=== PATIENT | female | born 1990 | race Caucasian/White ===

== ENCOUNTER 2021-12-30 04:55 | Emergency (ER) | payer OTHER, MEDICAID, SELFPAY ==
[2021-12-30 05:04] VITALS: BP 124/62; PULSE 85; RESP 18; TEMP 36.4; O2SAT 100
[2021-12-30 05:07] VITALS: BMI 23.3
--- NOTE | 2021-12-30 05:08 | DI.RAD.S_ITS ---
PROCEDURE: XR TIBIA FUBULA RT 2V INDICATIONS: pain, injury TECHNIQUE: 2 views of the tibia and fibula were acquired. COMPARISON: None. FINDINGS: Bones: No fractures or dislocations. No suspicious bony lesions. Soft tissues: No suspicious soft tissue calcifications or masses. IMPRESSION: No acute osseous abnormalities. No significant discrepancy with the night court magistrate radiology preliminary report. Dictated by: Aliyah Rizo M.D. on 12/30/2021 at 8:42 Approved by: Aliyah Rizo M.D. on 12/30/2021 at 8:42
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
--- NOTE | 2021-12-30 07:55 | DI.RAD.S_ITS ---
PROCEDURE: XR ANKLE RT MIN 3V INDICATIONS: pain, swelling, injury TECHNIQUE: 3 views of the ankle were acquired. COMPARISON: None. FINDINGS: Bones: No fractures or dislocations. Ankle mortise is normally aligned. No suspicious bony lesions. Soft tissues: Mild ankle edema. Achilles tendon appears normal. IMPRESSION: Mild ankle edema. No visualized acute fracture or dislocation. However, if clinical concern and/or pain persist, short interval imaging followup in 7-10 days is recommended, as occult injury cannot be definitively excluded. Dictated by: Viviana Carranza M.D. on 12/30/2021 at 8:39 Approved by: Viviana Carranza M.D. on 12/30/2021 at 8:39
--- NOTE | 2021-12-30 09:27 | PC.NURSE ---
Air splint applied to ankle. Education provided on crutches.
[2021-12-30 09:28] VITALS: BP 118/62; PULSE 88; RESP 16; O2SAT 98
== END 2021-12-30 09:28 | disposition home or self-care (01) ==
PROVIDERS: Emergency Provider Emergency Medicine
DX: S93.401A Sprain of unspecified ligament of right ankle, initial encounter (principal); L03.115 Cellulitis of right lower limb; V89.2XXA Person injured in unspecified motor-vehicle accident, traffic, initial encounter
CPT/HCPCS: 73590; 73610; 93971; 99283

== ENCOUNTER 2022-05-30 13:19 | Emergency (ER) | payer OTHER, MEDICAID, SELFPAY ==
--- NOTE | 2022-05-30 13:27 | PC.NURSE ---
pt brought from parking lot into shower immediately. undressed and placed under cold(at pt request) water. Provider notified and came to speak with pt in shower.
[2022-05-30 14:26] VITALS: BP 123/73; PULSE 105; RESP 17; TEMP 36.4; O2SAT 100
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
== END 2022-05-30 15:27 | disposition left against medical advice (07) ==
PROVIDERS: Emergency Provider Emergency Medicine
CPT/HCPCS: 99281

== ENCOUNTER 2022-07-06 16:30 | Emergency (ER) | payer OTHER, MEDICAID, SELFPAY ==
[2022-07-06 16:36] VITALS: BP 132/69; PULSE 81; RESP 18; TEMP 36.3; O2SAT 96; BMI 22.6
--- NOTE | 2022-07-06 18:50 | PC.NURSE ---
called from waiting room without answer
== END 2022-07-06 18:50 | disposition left against medical advice (07) ==
PROVIDERS: Emergency Provider Emergency Medicine; PCP Family Medicine
DX: R22.9 Localized swelling, mass and lump, unspecified (principal)
CPT/HCPCS: 99281

== ENCOUNTER 2023-06-02 00:01 | Emergency (ER) | payer OTHER, MEDICAID, SELFPAY ==
[2023-06-02 00:09] VITALS: BP 147/90; PULSE 79; RESP 20; TEMP 36.1; O2SAT 100; BMI 24.7
--- NOTE | 2023-06-02 00:20 | ED_ITS ---
HPI - Dental/Oral General Chief complaint: Dental/Oral Stated complaint: abscess in mouth Time Seen by Provider: 06/02/23 00:02 Source: patient Mode of arrival: Ambulatory History of Present Illness HPI Narrative: 32-year-old female presents for right-sided facial abscess. Patient was seen at [facility] yesterday for same and started on Augmentin. She took 3 total doses of Augmentin but her face is more swollen and painful and she does not think the Augmentin is helping. She states that she was taking leftover doxycycline that she had at home Related Data Previous Rx's Medication Instructions Recorded doxycycline hyclate 100 mg tablet 100 mg PO BID #20 tabs 12/30/21 ketorolac 10 mg tablet 10 mg PO Q6H PRN pain #14 tabs 12/30/21 chlorhexidine gluconate 0.12 % 15 ml buccal BID #600 mL 06/02/23 mouthwash (Peridex) clindamycin HCl 150 mg capsule 450 mg (3 x 150 mg) PO TID 10 days 06/02/23 #90 caps Allergies Allergy/AdvReac Type Severity Reaction Status Date / Time codeine AdvReac Vomiting Verified 07/06/22 16:40 Review of Systems Review of Systems Narrative: see HPI Patient History Social History Smoking Status: Current every day smoker Smoking Status: Current every day smoker tobacco type: cigarettes alcohol intake frequency: a few times a week Substance Use Type: does not use Exam Initial Vital Signs Initial Vital Signs: Vital Signs Temperature 97.0 F L 06/02/23 00:09 Pulse Rate 79 06/02/23 00:09 Respiratory Rate 20 06/02/23 00:09 Blood Pressure 147/90 H 06/02/23 00:09 Pulse Oximetry 100 06/02/23 00:09 Oxygen Delivery Method Room Air 06/02/23 00:09 Const: Awake, alert, no acute distress Mouth: no trismus, no pooling of secretions. Extensive dental caries, moderate swelling R mandible Skin: Warm, Dry, intact, no rashes Neuro: AO x3, CN II-XII grossly intact, moves all extremities Procedures Abscess I/D I&D #1: Site: oral Side (if applicable): right Local Anesthetic: lidocaine 1% and with epi Amount of anesthesia used (mL): 5 Technique: needle aspiration Amount of fluid expressed (mL): 0 Irrigation: No Packing used?: none Complications: bleeding Nerve Block Nerve Block 1: Local Anesthetic: lidocaine 1% and with epi Amount of anesthesia used (mL): 5 Side: right Nerve Blocks: other (dental) Intraoral Nerve Block: inferior alveolar Procedure Successful: Yes Patient Tolerated Procedure: Well Complications: bleeding Additional Comments: minor amount of bleeding Course Vital Signs Vital signs: Vital Signs - 8 hr 04/02/24 00:09 Temperature 97.0 F L Pulse Rate 79 Respiratory Rate 20 Blood Pressure 147/90 H Pulse Oximetry 100 Oxygen Delivery Method Room Air MDM - Dental/Oral MDM Narrative Medical decision making narrative: Worsening dental abscess. Patient has extensive dental caries and severe dental disease. Dental block performed with good analgesia, however despite needle aspiration no material was expressed from the area of swelling. We will change antibiotics from Augmentin to clindamycin. Patient counseled on the extreme importance of following up with dental services Discharge Plan Departure Patient Disposition: Home Clinical Impression: Dental abscess Instructions: Tooth Abscess Activity Restrictions/Additional Instructions: Stopped taking the Augmentin and start taking the clindamycin. Finish all of the antibiotics. It was extremely important that you follow up with a dentist otherwise this condition we will never get better. Prescriptions: New chlorhexidine gluconate [Peridex] 0.12 % mouthwash 15 ml buccal BID Qty: 600 0RF clindamycin HCl 150 mg capsule 450 mg PO TID 10 Days Qty: 90 0RF No Action doxycycline hyclate 100 mg tablet 100 mg PO BID Qty: 20 0RF ketorolac 10 mg tablet 10 mg PO Q6H PRN (Reason: pain) Qty: 14 0RF Referrals: Luis Eduardo Ureña MD [Primary Care Provider] - Stand Alone Forms: Patient Portal/API
--- NOTE | 2023-06-02 00:23 | PC.NURSE ---
Pt has multiple missing teeth. Pt reports she has had these issues for more than 3 years now. Pt started to have this right mouth pain/swelling for the last few days. Seen recently and treated with antibiotics, but pt feels she is worse.
[2023-06-02 01:05] VITALS: BP 126/65; PULSE 80; RESP 22; O2SAT 96
[2023-06-02] MEDS: CHLORHEXIDINE GLUCONATE 15 ML CUP PO (01:05)
[2023-06-02] MEDS: CLINDAMYCIN 150 MG CAPSULE 450 MG PO (01:05)
== END 2023-06-02 01:15 | disposition home or self-care (01) ==
PROVIDERS: Emergency Provider Emergency Medicine; PCP Family Medicine
DX: K04.7 Periapical abscess without sinus (principal)

== ENCOUNTER 2023-06-02 14:40 | Observation (INO) | payer OTHER, MEDICAID, SELFPAY ==
[2023-06-02] VITALS (7 sets, daily range): BP systolic 113–125; BP diastolic 59–73; PULSE 75–85; RESP 16–20; TEMP 36.3–36.8; O2SAT 10–100; BMI 24.7
[2023-06-02 16:00] LABS: Add Manual Diff / Slide Review NO; Basophils Absolute Auto 0 /uL (0-100); Basophils Percent Auto 0.4 % (0-2); Eosinophils Absolute Auto 100 /uL (0-450); Eosinophils Percent Auto 0.7 % (2-4); Hematocrit 35.9 % (36-46); Hemoglobin 12.5 g/dL (12.0-16.0); Lymphocytes Absolute Auto 1600 /uL (1100-4500); Lymphocytes Percent Auto 20.6 % (25-40); Mean Corpuscular Hemoglobin 30.5 PG (26-34); Mean Corpuscular Volume 87.3 fL (80-100); Monocytes Absolute Auto 800 /uL (0-900); Monocytes Percent Auto 9.4 % (3-14); Neutrophils Absolute Auto 5500 /uL (1500-7000); Neutrophils Percent Auto 68.9 % (50-75); Platelet Count 283 X10^3/uL (150-400); Red Blood Cell Count 4.11 X10^6/uL (4.0-5.2); Red Cell Distribution Width 12.5 % (11.6-14.8)
[2023-06-02] MEDS: MORPHINE 4 MG/ML INJ IV (16:00)
[2023-06-02] MEDS: KETOROLAC 30 MG/ML VIAL 15 MG IV (16:00)
[2023-06-02 16:11] LABS: INR 1.1 (0.9-1.3); Prothrombin Time 12.6 SECONDS (9.4-12.5)
[2023-06-02] MEDS: SODIUM CHLORIDE 0.9% 1,000 ML 1000 ML IV (16:12)
[2023-06-02] MEDS: diphenhydrAMINE 50 MG/ML VIAL 25 MG IV (16:12)
[2023-06-02 16:13] LABS: PTT Partial Thromboplastin Tim 48 SECONDS (25.1-36.5)
--- NOTE | 2023-06-02 16:13 | PC.NURSE ---
Pt c/o itching and redness on right arm above where IV morphine was administered. Denies shortness of breath, airway swelling, hives, nausea/vomiting. Dr. Mcgraw made aware, ordered benedryl 25 mg IV which was administered. Vital signs as documented. Morphine added to allergy list.
[2023-06-02 16:17] LABS: Lactate (Lactic Acid) 1.1 mmol/L (0.7-2.1)
[2023-06-02 16:18] LABS: Alanine Aminotransferase 26 IU/L (<35); Albumin 3.7 g/dL (3.5-5.0); Albumin Globulin Ratio 1.2 (1.0-2.8); Alkaline Phosphatase 88 U/L (38-126); Aspartate Aminotransferase 28 IU/L (14-36); Bilirubin Total 0.5 mg/dL (0.2-1.3); Blood Urea Nitrogen 15 mg/dL (7-17); Calcium 8.5 mg/dL (8.4-10.2); Carbon Dioxide 25 mmol/L (22-32); Chloride 106 mmol/L (98-107); Estimated Glomerular Filt Rate > 60 mL/min (>60); Globulin 3.2 g/dL (1.7-4.1); Glucose 121 mg/dL (70-100); HEMOLYSIS < 15 (0-50); Lipase 44 U/L (23-300); Potassium 3.8 mmol/L (3.4-5.1); Sodium 137 mmol/L (137-145); Total Protein 6.9 g/dL (6.3-8.2)
[2023-06-02 16:24] LABS: Pregnancy Test Serum,Qual Negative (Negative)
[2023-06-02 16:34] LABS: Procalcitonin 0.04 ng/mL (<0.5)
--- NOTE | 2023-06-02 16:56 | DI.CT.S_ITS ---
PROCEDURE: CT SOFT TISSUE NECK W CON INDICATIONS: right neck/face swelling TECHNIQUE: After the administration of intravenous contrast, 3.0 mm axial sections acquired from the sella to the aortic arch. Additional oblique axial 3.0 mm sections acquired through the pharynx. 3 mm thick coronal and sagittal reformats were generated. For radiation dose reduction, the following was used: automated exposure control. COMPARISON: None. FINDINGS: Image quality: Excellent. Lymph nodes: Multiple enlarged right submandibular, level 2 and level 3 lymph nodes are seen that are most likely reactive. Smaller left-sided cervical lymph nodes are mildly increased in number. Vessels: Visualized vasculature appears patent. Neck spaces: Prominent soft tissue edema is seen in the right buccal region overlying subcutaneous tissues. No well-defined fluid collection or abscess is seen. No submandibular or parotid duct enlargement or sialolith is seen. The oropharynx, nasopharynx, and pharynx demonstrate no mucosal lesions. The vocal cords, false vocal cords, pyriform sinuses, epiglottis, vallecula, and tongue base all appear normal. Glands: The parotid and submandibular glands appear normal. Thyroid appears normal. Miscellaneous: Visualized brain and orbits appear normal. Lung apices appear clear. Superficial soft tissues appear normal. Bones: Diffuse dental and periodontal disease is noted. No suspicious bony lesions. Mucous retention cysts are seen in the bilateral maxillary sinuses. Minimal degenerative changes in the cervical spine. IMPRESSION: 1. Soft tissue edema is seen throughout the right face centered in the buccal region, which is nonspecific but may represent cellulitis. No focal abscess. There is diffuse dental and periodontal disease that could indicate a source for infection. 2. Mildly enlarged right cervical lymph nodes are nonspecific but likely reactive. Approved by: Jake Montoya M.D. on 06/02/2023 at 17:10
--- NOTE | 2023-06-02 16:59 | PC.NURSE ---
Pt came to the ED today for ongoing and worsening right lower jaw pain & swelling. Pt seen at [facility] in [place] yesterday and received rx for augmentin. Pt's pain and swelling worsened so pt came to ED early this morning. Needle aspiration performed at that time unsuccessful. ED doc changed abx to clindamyicin. Pt states swelling and pain worse than this morning and has returned to ED for further evaluation. Pt denies having any fever. Right jaw and lip extremely swollen. Pt a&ox4.
--- NOTE | 2023-06-02 18:23 | ED_ITS ---
HPI - Dental/Oral General Chief complaint: Dental/Oral Stated complaint: tooth pain, face swelling Time Seen by Provider: 06/02/23 17:49 Source: patient Mode of arrival: Ambulatory History of Present Illness HPI Narrative: 32-year-old female with history of dental caries presents for facial swelling and jaw pain. Patient was seen earlier this morning by myself for facial swelling. Attempted to drain fluid, however this was unsuccessful. Patient had been on Augmentin for several days and she did not feel like she was improving, so she was switched to clindamycin and discharged home. Patient returns today with markedly worsened swelling and pain. Denies difficulty swallowing, voice changes. She is able to open her mouth and tolerate secretions. Related Data Previous Rx's Medication Instructions Recorded doxycycline hyclate 100 mg tablet 100 mg PO BID #20 tabs 12/30/21 ketorolac 10 mg tablet 10 mg PO Q6H PRN pain #14 tabs 12/30/21 chlorhexidine gluconate 0.12 % 15 ml buccal BID #600 mL 06/02/23 mouthwash (Peridex) clindamycin HCl 150 mg capsule 450 mg (3 x 150 mg) PO TID 10 days 06/02/23 #90 caps Allergies Allergy/AdvReac Type Severity Reaction Status Date / Time morphine Allergy ITCHING Verified 06/02/23 16:16 codeine AdvReac Vomiting Verified 06/02/23 14:49 Review of Systems Review of Systems Narrative: Negative except as noted above Patient History Social History Smoking Status: Current every day smoker Smoking Status: Current every day smoker tobacco type: cigarettes alcohol intake frequency: a few times a week Substance Use Type: does not use Exam Initial Vital Signs Initial Vital Signs: Vital Signs Temperature 98.3 F 06/02/23 14:43 Pulse Rate 85 06/02/23 14:43 Respiratory Rate 20 06/02/23 14:43 Blood Pressure 125/59 L 06/02/23 14:43 Pulse Oximetry 98 06/02/23 14:43 Oxygen Delivery Method Room Air 06/02/23 14:43 Const: Awake, alert, no acute distress, nontoxic appearing HEENT: markedly worsened R sided facial swelling. Extensive dental caries and tooth decay. No trismus, no pooling of secretions Cardiac: regular rate, regular rhythm RESP: unlabored, clear bilaterally, no wheezing Skin: Warm, Dry, intact, no rashes Neuro: AO x3, CN II-XII grossly intact, moves all extremities Course Orders Ordered: ED Orders 06/02/23 15:15 Complete Blood Count AUTO DIFF Stat Comprehensive Metabolic Panel Stat Lactate (Lactic Acid) Stat Lipase Stat PTT Partial Thromboplastin Rolando Stat Test Serum,Qual Stat Procalcitonin Stat Prothrombin Time INR Stat 06/02/23 16:05 Blood Culture Stat 06/02/23 16:56 CT soft tissue neck w con Stat 06/02/23 19:24 Urine Drug Screen, Rapid Stat Acetaminophen (Acetaminophen 325 Mg Tablet) 650 mg PO Q6H PRN PRN Reason: Fever/Mild Pain (1-3) Enoxaparin Sodium (Enoxaparin 40 Mg/0.4 Ml Syringe) 40 mg SUBCUT DAILY ANDREW Ampicillin Sodium/Sulbactam (Sodium 1.5 gm/ Sodium Chloride) 100 mls @ 200 mls/hr IV Q6H ANDREW Naloxone HCl (Naloxone 0.4 Mg/Ml Vial) 0.2 mg IV Q2MIN PRN PRN Reason: Opiate Reversal Ondansetron HCl (Ondansetron 4 Mg/2 Ml Inj) 4 mg IV NOW PRN PRN Reason: Nausea And Vomiting Ondansetron HCl (Ondansetron 4 Mg Odt) 4 mg SL NOW PRN PRN Reason: Nausea And Vomiting Ondansetron HCl (Ondansetron 4 Mg/2 Ml Inj) 4 mg IV Q4HR PRN PRN Reason: nausea Oxycodone HCl (Oxycodone Ir 5 Mg Tablet) 5 mg PO Q3H PRN PRN Reason: Pain, Moderate (4-6) Oxycodone HCl (Oxycodone Ir 10 Mg Tablet) 10 mg PO Q3H PRN PRN Reason: Pain, Severe (7-10) Discontinued Medications Dexamethasone (Dexamethasone 10 Mg/Ml Vial) 10 mg IV NOW ONE Stop: 06/02/23 18:25 Last Admin: 06/02/23 19:17 Dose: 10 mg Documented By: PAULO Diphenhydramine HCl (Diphenhydramine 50 Mg/Ml Vial) 25 mg IV NOW ONE Stop: 06/02/23 16:08 Last Admin: 06/02/23 16:12 Dose: 25 mg Documented By: KELECHI Sodium Chloride (Normal Saline 0.9%) 1,000 mls @ 1,000 mls/hr IV BOLUS ONE Stop: 06/02/23 16:32 Last Infusion: 06/02/23 17:18 Dose: Infused Documented By: Admin: 06/02/23 16:12 Dose: 1,000 mls/hr Documented By: KELECHI Ampicillin Sodium/Sulbactam (Sodium 3 gm/ Sodium Chloride) 100 mls @ 200 mls/hr IV NOW ONE Stop: 06/02/23 18:27 Last Infusion: 06/02/23 19:51 Dose: Infused Documented By: Admin: 06/02/23 19:17 Dose: 200 mls/hr Documented By: PAULO Ketorolac Tromethamine (Ketorolac 30 Mg/Ml Vial) 15 mg IV NOW ONE Stop: 06/02/23 15:37 Last Admin: 06/02/23 16:00 Dose: 15 mg Documented By: ROSELINE Morphine Sulfate (Morphine 4 Mg/Ml Inj) 4 mg IV NOW ONE Stop: 06/02/23 15:37 Last Admin: 06/02/23 16:00 Dose: 4 mg Documented By: ROSELINE Vital Signs Vital signs: Vital Signs - 8 hr 06/02/23 14:43 06/02/23 16:00 06/02/23 16:30 Temperature 98.3 F Pulse Rate 85 78 Respiratory Rate 20 16 Blood Pressure 125/59 L 120/73 122/64 Pulse Oximetry 98 99 Oxygen Delivery Method Room Air Room Air 06/02/23 17:00 06/02/23 19:12 06/02/23 19:12 Temperature Pulse Rate 80 75 Respiratory Rate 18 Blood Pressure 125/62 121/66 121/66 Pulse Oximetry 96 10 L Oxygen Delivery Method Room Air MDM - Dental/Oral Differential Diagnosis Differential diagnosis: Likely gingival abscess, dental caries, toothache and dental abscess Lab Data 06/02/23 15:15 06/02/23 15:15 Labs: Lab Results 06/02/23 Range/Units 15:15 WBC 8.0 (4.5-11.0) X10^3/uL RBC 4.11 (4.0-5.2) X10^6/uL Hgb 12.5 (12.0-16.0) g/dL Hct 35.9 L (36-46) % MCV 87.3 (80-100) fL MCH 30.5 (26-34) PG MCHC 35.0 (30-36) % RDW 12.5 (11.6-14.8) % Plt Count 283 (150-400) X10^3/uL Neut % (Auto) 68.9 (50-75) % Lymph % (Auto) 20.6 L (25-40) % [place] % (Auto) 9.4 (3-14) % Eos % (Auto) 0.7 L (2-4) % Baso % (Auto) 0.4 (0-2) % Neut # (Auto) 5500 (5314-9126) /uL Lymph # (Auto) 1600 (6084-0904) /uL [place] # (Auto) 800 (0-900) /uL Eos # (Auto) 100 (0-450) /uL Baso # (Auto) 0 (0-100) /uL PT 12.6 H (9.4-12.5) SECONDS INR 1.1 (0.9-1.3) APTT 48 H (25.1-36.5) SECONDS Sodium 137 (137-145) mmol/L Potassium 3.8 (3.4-5.1) mmol/L Chloride 106 (98-107) mmol/L Carbon Dioxide 25 (22-32) mmol/L BUN 15 (7-17) mg/dL Creatinine 0.50 L (0.52-1.04) mg/dL Estimated GFR > 60 (>60) mL/min BUN/Creatinine Ratio 30.0 H (6-22) Glucose 121 H (70-100) mg/dL Lactate 1.1 (0.7-2.1) mmol/L Calcium 8.5 (8.4-10.2) mg/dL Total Bilirubin 0.5 (0.2-1.3) mg/dL AST 28 (14-36) IU/L ALT 26 (<35) IU/L Alkaline Phosphatase 88 (38-126) U/L Total Protein 6.9 (6.3-8.2) g/dL Albumin 3.7 (3.5-5.0) g/dL Globulin 3.2 (1.7-4.1) g/dL Albumin/Globulin Ratio 1.2 (1.0-2.8) Lipase 44 (23-300) U/L Procalcitonin 0.04 (<0.5) ng/mL Serum , Qual Negative (Negative) Imaging Data CT scan - head: Radiologist's Impression: PROCEDURE: CT SOFT TISSUE NECK W CON INDICATIONS: right neck/face swelling TECHNIQUE: After the administration of intravenous contrast, 3.0 mm axial sections acquired from the sella to the aortic arch. Additional oblique axial 3.0 mm sections acquired through the pharynx. 3 mm thick coronal and sagittal reformats were generated. For radiation dose reduction, the following was used: automated exposure control. COMPARISON: None. FINDINGS: Image quality: Excellent. Lymph nodes: Multiple enlarged right submandibular, level 2 and level 3 lymph nodes are seen that are most likely reactive. Smaller left-sided cervical lymph nodes are mildly increased in number. Vessels: Visualized vasculature appears patent. Neck spaces: Prominent soft tissue edema is seen in the right buccal region overlying subcutaneous tissues. No well-defined fluid collection or abscess is seen. No submandibular or parotid duct enlargement or sialolith is seen. The oropharynx, nasopharynx, and pharynx demonstrate no mucosal lesions. The vocal cords, false vocal cords, pyriform sinuses, epiglottis, vallecula, and tongue base all appear normal. Glands: The parotid and submandibular glands appear normal. Thyroid appears normal. Miscellaneous: Visualized brain and orbits appear normal. Lung apices appear clear. Superficial soft tissues appear normal. Bones: Diffuse dental and periodontal disease is noted. No suspicious bony lesions. Mucous retention cysts are seen in the bilateral maxillary sinuses. Minimal degenerative changes in the cervical spine. IMPRESSION: 1. Soft tissue edema is seen throughout the right face centered in the buccal region, which is nonspecific but may represent cellulitis. No focal abscess. There is diffuse dental and periodontal disease that could indicate a source for infection. 2. Mildly enlarged right cervical lymph nodes are nonspecific but likely reactive. Approved by: Jake Montoya M.D. on 06/02/2023 at 17:10 MDM Narrative Medical decision making narrative: Markedly worsened facial swelling compared to when I saw patient earlier this morning. She was still able to open her mouth, tolerating secretions, however due to the rapid expansion of the swelling patient will likely need IV antibiotics. Laboratory work is relatively unremarkable, CT shows extensive soft tissue edema in the buccal region but no abscess. Patient given Decadron and Unasyn for coverage. We will admit for IV antibiotics. Discharge Plan Departure Patient Disposition: Admitted as Observation Clinical Impression: Facial cellulitis, Dental caries Admit Date/Time: 06/02/23 19:28 Admit Provider: Yobani Esquivel
--- NOTE | 2023-06-02 19:15 | PC.NURSE ---
pt resting with eyes closed resp even and unlabored, 20g HL to right hand intact without any redness or swelling noted, flushes well. pt allowed to continue to rest no apparent distress noted
[2023-06-02] MEDS: DEXAMETHASONE 10 MG/ML VIAL IV (19:17)
[2023-06-02] MEDS: AMPICILLIN/SULBACTAM 3 GM 3 GM in SODIUM CHLORIDE 0.9% 100 ML IV (19:17)
--- NOTE | 2023-06-02 19:36 | PM.HP.1 ---
History of Present Illness History of Present Illness Chief complaint: tooth pain, face swelling Narrative: 32 y/o with PMH of poor dentition, presented to ED earlier today with facial cellulitis originating from right bottom incisor infection, prescribed clindamycin, instead of Augmentin that she was taking for a few days. She presented again this evening with progressive facial swelling. PFSH Medical History Poor dentition Smoker Social History household members: friend(s) Smoking Status: Current every day smoker Meds Home Medications and Allergies Home Medications Medication Instructions Recorded Confirmed Type ketorolac 10 mg tablet 10 mg PO Q6H PRN pain #14 tabs 12/30/21 06/02/23 Rx chlorhexidine gluconate 0.12 % 15 ml buccal BID #600 mL 06/02/23 06/02/23 Rx mouthwash (Peridex) clindamycin HCl 150 mg capsule 450 mg (3 x 150 mg) PO TID 10 days 06/02/23 06/02/23 Rx #90 caps Allergies Allergy/AdvReac Type Severity Reaction Status Date / Time morphine Allergy ITCHING Verified 06/02/23 16:16 codeine AdvReac Vomiting Verified 06/02/23 14:49 Review of Systems Review of Systems Narrative: she had fever, chills ENT Comments: toothache Cardiovascular Comments: w/;o palpitations or chest pain Respiratory Comments: w/o shortness of breath Exam Vital Signs (past 8 hours): - 06/02/23 14:43 06/02/23 16:00 06/02/23 16:30 Temperature 98.3 F Pulse Rate 85 78 Respiratory Rate 20 16 Blood Pressure 125/59 L 120/73 122/64 Pulse Oximetry 98 99 Oxygen Delivery Method Room Air Room Air 06/02/23 17:00 06/02/23 19:12 06/02/23 19:12 Temperature Pulse Rate 80 75 Respiratory Rate 18 Blood Pressure 125/62 121/66 121/66 Pulse Oximetry 96 10 L Oxygen Delivery Method Room Air Oxygen Delivery Method Room Air Narrative Exam Narrative: in no distress, laying in bed HENMT Other: swollen right face poor dentition Resp Other: normal respiratory effort Cardio Other: RRR Skin Other: w/o rashes Neuro Other: w/o deficits Objective Labs 06/02/23 15:15 06/02/23 15:15 Labs: Laboratory Results - last 24 hr 06/02/23 15:15 WBC 8.0 RBC 4.11 Hgb 12.5 Hct 35.9 L MCV 87.3 MCH 30.5 MCHC 35.0 RDW 12.5 Plt Count 283 Neut % (Auto) 68.9 Lymph % (Auto) 20.6 L [place] % (Auto) 9.4 Eos % (Auto) 0.7 L Baso % (Auto) 0.4 Neut # (Auto) 5500 Lymph # (Auto) 1600 [place] # (Auto) 800 Eos # (Auto) 100 Baso # (Auto) 0 PT 12.6 H INR 1.1 APTT 48 H Sodium 137 Potassium 3.8 Chloride 106 Carbon Dioxide 25 BUN 15 Creatinine 0.50 L Estimated GFR > 60 BUN/Creatinine Ratio 30.0 H Glucose 121 H Lactate 1.1 Calcium 8.5 Total Bilirubin 0.5 AST 28 ALT 26 Alkaline Phosphatase 88 Total Protein 6.9 Albumin 3.7 Globulin 3.2 Albumin/Globulin Ratio 1.2 Lipase 44 Procalcitonin 0.04 Serum , Qual Negative Assessment & Plan Assessment and plan (1) Facial cellulitis: Status: Acute (2) Poor dentition: Status: Acute (3) Smoker: Status: Acute Assessment & Plan narrative: Facial Cellulitis - Failed 2 different PO antibiotics since 2-3 days ago - Worsened swelling since this morning - not septic but will require iv antibiotic - w/o odynophagia or change of voice, given steroid in ED - needs to follow with dentist Smoker - nicotine patch prn DVT prophylaxis -Lovenox
[2023-06-02] MEDS: OXYCODONE IR 5 MG TABLET PO (20:46)
[2023-06-02 23:07] LABS: UR Morphine/Opiate cutoff 300 Positive (Negative); Ur Creatinine Normal (Normal); Ur Specific Gravity Normal (Normal); Urine Amphetamines Positive (Negative); Urine Barbiturates Negative (Negative); Urine Benzodiazepines Negative (Negative); Urine Cocaine Negative (Negative); Urine MDMA Positive (Negative); Urine Methadone Negative (Negative); Urine Methamphetamines Positive (Negative); Urine Phencyclidine Negative (Negative); Urine Tetrahydrocannabinol Negative (Negative); Urine Tricyclic Antidepressant Negative (Negative); Urine pH Normal (Normal)
[2023-06-02 23:08] LABS: Urine Oxycodone Negative (Negative)
[2023-06-03] MEDS: AMPICILLIN/SULBACTAM 1.5 GM 1.5 GM in SODIUM CHLORIDE 0.9% 100 ML IV ×2 (00:08→05:42)
[2023-06-03 05:00] VITALS: BP 113/60; PULSE 70; RESP 16; TEMP 36.8; O2SAT 98
[2023-06-03 05:43] LABS: Add Manual Diff / Slide Review NO; Basophils Absolute Auto 0 /uL (0-100); Basophils Percent Auto 0.1 % (0-2); Eosinophils Absolute Auto 0 /uL (0-450); Hematocrit 36.8 % (36-46); Lymphocytes Absolute Auto 1100 /uL (1100-4500); Mean Corpuscular HGB Conc 35.3 % (30-36); Mean Corpuscular Hemoglobin 30.8 PG (26-34); Monocytes Absolute Auto 400 /uL (0-900); Monocytes Percent Auto 4.2 % (3-14); Neutrophils Absolute Auto 7000 /uL (1500-7000); Neutrophils Percent Auto 82.7 % (50-75); Platelet Count 311 X10^3/uL (150-400); Red Blood Cell Count 4.23 X10^6/uL (4.0-5.2); Red Cell Distribution Width 12.3 % (11.6-14.8); White Blood Cell Count 8.4 X10^3/uL (4.5-11.0)
[2023-06-03 06:02] LABS: BUN Creatinine Ratio 27.1 (6-22); Blood Urea Nitrogen 13 mg/dL (7-17); Calcium 8.5 mg/dL (8.4-10.2); Carbon Dioxide 24 mmol/L (22-32); Chloride 109 mmol/L (98-107); Estimated Glomerular Filt Rate > 60 mL/min (>60); Glucose 119 mg/dL (70-100); HEMOLYSIS < 15 (0-50); Sodium 136 mmol/L (137-145)
[2023-06-03 08:09] VITALS: BP 96/52; PULSE 72; RESP 16; TEMP 37.3; O2SAT 98
--- NOTE | 2023-06-03 09:41 | PC.NURSE ---
Addendum entered by Khang Urbina R.N. 06/03/23 10:50: Day shift - @1050 Pt has not returned, per Dr Fang Pt is gone AMA. I gathered her Pt belongings and placed in coordinators office. Original Note: Day shift-@0936 I walked by the Pt room to check on her, Pt is not present in room. Pt was last seen in room on bed talking on telephone @0904.
--- NOTE | 2023-06-03 11:13 | P.DS_ITS ---
History of Present Illness History of Present Illness Date Patient Seen: 06/03/23 Chief complaint: tooth pain, face swelling Narrative: Per overnight provider, 32 y/o with PMH of poor dentition, presented to ED earlier today with facial cellulitis originating from right bottom incisor infection, prescribed clindamycin, instead of Augmentin that she was taking for a few days. She presented again this evening with progressive facial swelling. Discharge Providers Provider Date of admission: 06/02/23 19:28 Discharge Date: 06/03/23 Primary care physician: Luis Eduardo Ureña MD Discharge provider: Kan Fang DO Summary Hospital Course Discharge Diagnosis: (1) Facial cellulitis: (2) Poor dentition: (3) Smoker: Hospital Course: 32 F admitted for facial cellulitis, CT did not show abscess but source was likely poor dentition. Patient eloped shortly after admission prior to being seen by me. Patient left belongings in her room, could not be located for over an hour. Time Spent with Patient Time spent: Less than 30 minutes Exam Vital Signs (past 8 hours): - 06/03/23 05:00 06/03/23 08:09 Temperature 98.3 F 99.2 F Pulse Rate 70 72 Respiratory Rate 16 16 Blood Pressure 113/60 96/52 L Pulse Oximetry 98 98 Oxygen Flow Rate 0 0 Oxygen Delivery Method Room Air Oxygen Flow Rate 0 Narrative Exam Narrative: unable to see, patient eloped prior to being seen. Objective Labs 06/03/23 05:10 06/03/23 05:10 Labs: Laboratory Results - last 24 hr 06/02/23 06/02/23 06/03/23 15:15 22:48 05:10 WBC 8.0 8.4 RBC 4.11 4.23 Hgb 12.5 13.0 Hct 35.9 L 36.8 MCV 87.3 87.0 MCH 30.5 30.8 MCHC 35.0 35.3 RDW 12.5 12.3 Plt Count 283 311 Neut % (Auto) 68.9 82.7 H Lymph % (Auto) 20.6 L 13.0 L [place] % (Auto) 9.4 4.2 Eos % (Auto) 0.7 L 0.0 L Baso % (Auto) 0.4 0.1 Neut # (Auto) 5500 7000 Lymph # (Auto) 1600 1100 [place] # (Auto) 800 400 Eos # (Auto) 100 0 Baso # (Auto) 0 0 PT 12.6 H INR 1.1 APTT 48 H Sodium 137 136 L Potassium 3.8 4.0 Chloride 106 109 H Carbon Dioxide 25 24 BUN 15 13 Creatinine 0.50 L 0.48 L Estimated GFR > 60 > 60 BUN/Creatinine Ratio 30.0 H 27.1 H Glucose 121 H 119 H Lactate 1.1 Calcium 8.5 8.5 Total Bilirubin 0.5 AST 28 ALT 26 Alkaline Phosphatase 88 Total Protein 6.9 Albumin 3.7 Globulin 3.2 Albumin/Globulin Ratio 1.2 Lipase 44 Procalcitonin 0.04 Serum , Qual Negative U Opiates 300ng/mL cut Positive H Ur Oxycodone Screen Negative Urine Methadone Screen Negative Ur Barbiturates Screen Negative U Tricyclic Antidepress Negative Ur Phencyclidine Scrn Negative Ur Amphetamines Screen Positive H U Methamphetamines Scrn Positive H Ur MDMA Scrn (Ecstasy) Positive H U Benzodiazepines Scrn Negative Urine Cocaine Screen Negative U Marijuana (THC) Screen Negative Urine pH Normal Urine Specific [place] Normal Ur Creatinine Normal PFSH Medical History Poor dentition Smoker Social History household members: friend(s) Smoking Status: Current every day smoker Discharge Plan Discharge Plan Patient Disposition: Left Against Medical Advice Provider Discharge Comment: Patient eloped Discharge orders & Medications Prescriptions: Continued chlorhexidine gluconate [Peridex] 0.12 % mouthwash 15 ml buccal BID Qty: 600 0RF clindamycin HCl 150 mg capsule 450 mg PO TID 10 Days Qty: 90 0RF ketorolac 10 mg tablet 10 mg PO Q6H PRN (Reason: pain) Qty: 14 0RF Follow up/Referrals: Luis Eduardo Ureña MD [Primary Care Provider] - Discharge Data Primary Care Provider: Luis Eduardo Ureña Attending Provider: Yobani Esquivel Admit Date/Time: 06/02/23 19:28
--- NOTE | 2023-06-03 12:28 | PC.NURSE ---
Notified by [employer] at 0945 that patient was not in room. Personal belongings visible in room including a backpack, no cell phone noted. Coordinator attempted to call patient with cell number listed in EMR. No answer. Security was notified. RN and Coordinator walked around the unit and the facility in effort to locate the patient. Patient was not located in the building. Dr. Fang aware. Unable to locate or contact patient. Per Dr. Fang. Discharge AMA. Belongings secured.
== END 2023-06-03 10:55 | disposition left against medical advice (07) ==
LOC: ED 17:49 → AC 19:29
PROVIDERS: Emergency Medicine; Admitting Provider Internal Medicine; Emergency Provider Emergency Medicine; PCP Family Medicine; Referring Provider Emergency Medicine; Visit Provider Internal Medicine
DX: L03.211 Cellulitis of face (principal); K08.9 Disorder of teeth and supporting structures, unspecified; F17.200 Nicotine dependence, unspecified, uncomplicated; Z53.29 Procedure and treatment not carried out because of patient's decision for other reasons
CPT/HCPCS: 10060; 36415; 64450; 70491; 80048; 80053; 80305; 83605; 83690; 84145; 84703; 85025; 85610; 85730; 87040; 96361; 96365; 96366; 96375; 99283; 99284; G0378; J0295; J1100; J1200; J1885; J2270; Q9967

== ENCOUNTER 2023-11-14 04:46 | Emergency (ER) | payer OTHER, MEDICAID, SELFPAY ==
[2023-06-02 20:35] VITALS: BMI 24.7
--- NOTE | 2023-11-14 04:50 | ED.GENADULT ---
HPI - General Adult General Chief complaint: Dental/Oral Stated complaint: tooth abcess Time Seen by Provider: 11/14/23 04:50 Source: patient, RN notes reviewed and old records reviewed History of Present Illness HPI narrative: 33-year-old female history of dental caries, patient presents with facial swelling in states that she has had several rounds of antibiotics without improvement. She states she has had clindamycin as well as Augmentin. Is almost completed with Augmentin and continuing to have swelling that is slightly worse. States it seems to be 1 of her upper canine, 1 of the tip teeth are broken off. She has not been to the dentist but thought she had to wait until the infection got better until she can go see them to have it extracted. Patient states she took clindamycin before that. She states she got 1 dose of IV antibiotics at [facility]. Denies fevers or chills. She states it has not particularly painful. Patient states swelling is not rapidly worsening. Does not have any outside erythema. No swelling of the airway. She was able to drink and swallow without issue. Had some slight nausea but no vomiting. Denies any daily medications. Has allergies to morphine and codeine. Does use tobacco daily, occasional alcohol, denies recreational drugs. Related Data Previous Rx's Medication Instructions Recorded ketorolac 10 mg tablet 10 mg PO Q6H PRN pain #14 tabs 12/30/21 chlorhexidine gluconate 0.12 % 15 ml buccal BID #600 mL 06/02/23 mouthwash (Peridex) chlorhexidine gluconate 0.12 % 15 ml buccal BID #300 mL 11/14/23 mouthwash doxycycline hyclate 100 mg tablet 100 mg PO BID #20 tabs 11/14/23 Allergies Allergy/AdvReac Type Severity Reaction Status Date / Time morphine Allergy ITCHING Verified 06/02/23 16:16 codeine AdvReac Vomiting Verified 06/02/23 14:49 Review of Systems Review of Systems ROS Unobtainable: All systems reviewed & are unremarkable except as noted in HPI and below Patient History Medical History Poor dentition Smoker Social History household members: friend(s) Smoking Status: Current every day smoker Smoking Status: Current every day smoker tobacco type: cigarettes alcohol intake frequency: a few times a week Substance Use Type: sedatives and painkillers Exam Narrative Exam Narrative: GEN:alert and oriented x 3, patient appears to be in mild distress. HEENT: Atraumatic, pupils are equal round reactive to light, extraocular movements are intact, nares are clear, TMs are clear with no fluid, there is no conjunctival pallor. Throat is clear without any exudates, erythema, tonsillar enlargement or uvular deviation, patient has significant dental caries, patient does not have any clear source of swelling, there is a little bit of whitish discoloration in the upper gingiva. No trismus no difficulty with secretions. Patient has some mild swelling of the upper lip and cheek. No warmth or erythema no induration, fluid collection. Normal speech. HEART: Regular rate and rhythm without murmur, clicks, rubs. LUNGS:Lungs clear to auscultation, no wheezes, rales, crackles, chest moves symmetrically ABD:bowel sounds normal, soft, non-tender, no guarding, rebound, rigidity, no masses noted, no hepatosplenomegaly MSCL: Non-tender, no muscle atrophy, muscles strength 5/5 upper and lower extremities, full range of motion, normal gait NEURO:CN 2-12 intact, sensation normal. Initial Vital Signs Initial Vital Signs: Vital Signs Temperature 98.3 F 11/14/23 04:54 Pulse Rate 81 11/14/23 04:54 Respiratory Rate 18 11/14/23 04:54 Blood Pressure 136/63 11/14/23 04:54 Pulse Oximetry 99 11/14/23 04:54 Oxygen Delivery Method Room Air 11/14/23 04:54 Course Orders Ordered: Discontinued Medications Doxycycline Hyclate (Doxycycline Hyclate 100 Mg Tablet) 100 mg PO NOW ONE Stop: 11/14/23 05:06 Last Admin: 11/14/23 05:07 Dose: 100 mg Vital Signs Vital signs: Vital Signs - 8 hr 11/14/23 04:54 Temperature 98.3 F Pulse Rate 81 Respiratory Rate 18 Blood Pressure 136/63 Pulse Oximetry 99 Oxygen Delivery Method Room Air Medical Decision Making [facility] Narrative Medical decision making narrative: Patient states she has recently been on Augmentin and prior to that Clindamycin. Patient has some mild cellulitis no drainable abscess of the face or gums. Patient states she is tolerated doxycycline while in the past and had improvement. We will switch her to this discussed she does not need to see a dentist as extraction may improve her situation. She does not appear septic does not have a large amount of cellulitis no airway involvement felt appropriate for discharge home. Patient is agreeable with plan. We will also give a chlorhexidine oral rinse as patient does have some changes to the gingiva this maybe helpful if there is a component of ANUG. ASHVIN heredia patient has visits at [facility] on the and 02 November. Prior to that was not [facility] was admitted on the 01 of June for facial cellulitis and dental caries but had no abscess even with CT of the face at that time, patient eloped/left AMA during her stay in the hospital . Discharge Plan Departure Patient Disposition: Home Clinical Impression: Dental abscess Activity Restrictions/Additional Instructions: Please call to set up follow up with a dentist, the antibiotics may help but if he has been through several rounds and are not improving you need to see the dentist. Can use chlorhexidine rinse, 15 mL twice daily to see if this also improves your symptoms. Take oral antibiotics until completed. Prescription sent to [facility] in [place] Please return for rapidly worsening symptoms, fevers, vomiting, increasing swelling or redness of the face, has swelling of the tongue airway, muffled voice or difficulty swallowing or other new or concerning changes. Prescriptions: New doxycycline hyclate 100 mg tablet 100 mg PO BID Qty: 20 0RF chlorhexidine gluconate 0.12 % mouthwash 15 ml buccal BID Qty: 300 0RF No Action chlorhexidine gluconate [Peridex] 0.12 % mouthwash 15 ml buccal BID Qty: 600 0RF ketorolac 10 mg tablet 10 mg PO Q6H PRN (Reason: pain) Qty: 14 0RF Referrals: Luis Eduardo Ureña MD [Primary Care Provider] - Stand Alone Forms: Patient Portal/API
[2023-11-14 04:54] VITALS: BP 136/63; PULSE 81; RESP 18; TEMP 36.8; O2SAT 99; BMI 25.0
[2023-11-14] MEDS: DOXYCYCLINE HYCLATE 100 MG TABLET PO (05:07)
== END 2023-11-14 05:09 | disposition home or self-care (01) ==
PROVIDERS: Emergency Provider Emergency Medicine; PCP Family Medicine
DX: K04.7 Periapical abscess without sinus (principal)
CPT/HCPCS: 99283

== ENCOUNTER 2023-12-30 03:55 | Emergency (ER) | payer OTHER, MEDICAID, SELFPAY ==
[2023-06-02 20:35] VITALS: BMI 24.7
[2023-12-30 04:02] VITALS: BP 126/85; PULSE 85; RESP 17; TEMP 36.6; O2SAT 99; BMI 25.0
--- NOTE | 2023-12-30 04:17 | ED.FALL ---
HPI - Fall General Chief Complaint: Fall Stated Complaint: fall, hit her head Time Seen by Provider: 12/30/23 04:11 Source: patient Mode of arrival: Ambulatory History of Present Illness HPI Narrative: Patient is a 33-year-old female here for evaluation of a head injury. She states she was standing at her kitchen. States she was cutting into some food when she thinks she fell asleep and fell forward and hit her head. Has had some nausea afterwards but no vomiting. Had some swelling where she hit her head but she put ice over the area and that seems to have improved tremendously. This happened somewhere between 3 and 6 hours ago. No other injuries from the event. She stated that she wanted to come get checked out before she went to sleep. Related Data Previous Rx's Medication Instructions Recorded ketorolac 10 mg tablet 10 mg PO Q6H PRN pain #14 tabs 12/30/21 chlorhexidine gluconate 0.12 % 15 ml buccal BID #600 mL 06/02/23 mouthwash (Peridex) chlorhexidine gluconate 0.12 % 15 ml buccal BID #300 mL 11/14/23 mouthwash doxycycline hyclate 100 mg tablet 100 mg PO BID #20 tabs 11/14/23 Allergies Allergy/AdvReac Type Severity Reaction Status Date / Time morphine Allergy ITCHING Verified 12/30/23 04:02 codeine AdvReac Vomiting Verified 12/30/23 04:02 Review of Systems Review of Systems Narrative: See HPI Patient History Medical History Poor dentition Smoker Social History household members: friend(s) Smoking Status: Current every day smoker Smoking Status: Current every day smoker tobacco type: cigarettes alcohol intake frequency: a few times a week Substance Use Type: sedatives and painkillers Exam Initial Vital Signs Initial Vital Signs: Vital Signs Temperature 97.8 F 12/30/23 04:02 Pulse Rate 85 12/30/23 04:02 Respiratory Rate 17 12/30/23 04:02 Blood Pressure 126/85 12/30/23 04:02 Pulse Oximetry 99 12/30/23 04:02 Oxygen Delivery Method Room Air 12/30/23 04:02 Const General: cooperative and comfortable HENDE Head: normal to inspection, normocephalic, atraumatic, No abrasion, No Quiroga's sign, No contusion, No palpable skull fracture and No scalp lesion Ears: TM's normal bilaterally Skin General: no rashes or lesions noted Neuro General: patient alert, patient awake, patient oriented x3 and moves all extremities Course Vital Signs Vital signs: Vital Signs - 8 hr 12/30/23 04:02 Temperature 97.8 F Pulse Rate 85 Respiratory Rate 17 Blood Pressure 126/85 Pulse Oximetry 99 Oxygen Delivery Method Room Air MDM - Fall MDM Narrative Medical decision making narrative: Patient has a normal physical exam without signs of depressed skull fracture. Alert and oriented x3. No indication for head CT. Discussed treatment at home to include Tylenol and ibuprofen. Discussed return precautions and follow-up instructions. She expressed understanding and agreement with plan. Discharge Plan Departure Patient Disposition: Home Clinical Impression: Closed head injury Instructions: Closed Head Injury Activity Restrictions/Additional Instructions: Continue to take all of your medications as directed. You have no restrictions on your activities. You can eat like normal and sleep like normal. You can take Tylenol and ibuprofen for any discomfort. Prescriptions: No Action chlorhexidine gluconate [Peridex] 0.12 % mouthwash 15 ml buccal BID Qty: 600 0RF ketorolac 10 mg tablet 10 mg PO Q6H PRN (Reason: pain) Qty: 14 0RF doxycycline hyclate 100 mg tablet 100 mg PO BID Qty: 20 0RF chlorhexidine gluconate 0.12 % mouthwash 15 ml buccal BID Qty: 300 0RF Referrals: Luis Eduardo Ureña MD [Primary Care Provider] - Stand Alone Forms: Patient Portal/API/Survey
[2023-12-30] MEDS: ACETAMINOPHEN 325 MG TABLET 650 MG PO (04:26)
== END 2023-12-30 04:30 | disposition home or self-care (01) ==
PROVIDERS: Emergency Provider Emergency Medicine; PCP Family Medicine
DX: S09.90XA Unspecified injury of head, initial encounter (principal); W18.30XA Fall on same level, unspecified, initial encounter
CPT/HCPCS: 99282; 99283

== ENCOUNTER 2023-12-31 09:41 | Emergency (ER) | payer OTHER, MEDICAID, SELFPAY ==
[2023-06-02 20:35] VITALS: BMI 24.7
[2023-12-31] VITALS (14 sets, daily range): BP systolic 102–126; BP diastolic 54–74; PULSE 48–89; RESP 11–17; TEMP 36.6; O2SAT 97–100; BMI 25.0
--- NOTE | 2023-12-31 10:18 | DI.CT.S_ITS ---
PROCEDURE: CT HEAD/BRAIN WO CON INDICATIONS: syncope with fall and hit head TECHNIQUE: Noncontrast 4.5 mm thick angled axial sections acquired from the foramen magnum to the vertex, with coronal and sagittal reformats. For radiation dose reduction, the following was used: automated exposure control, adjustment of mA and/or kV according to patient size. COMPARISON: None. FINDINGS: Image quality: Diagnostic. CSF spaces: Basal cisterns are patent. No extra-axial fluid collections. Ventricles are normal in size and shape. Brain: No midline shift. No intracranial masses or hemorrhage. Lujan-white matter interface is normal. Skull and face: Calvarium and visualized facial bones are intact, without suspicious lesions. Sinuses: Visualized sinuses and mastoids are clear. IMPRESSION: No acute intracranial pathology. Dictated by: Tony Miles M.D. on 12/31/2023 at 12:11 Approved by: Tony Miles M.D. on 12/31/2023 at 12:12
--- NOTE | 2023-12-31 10:19 | DI.RAD.S_ITS ---
PROCEDURE: XR CHEST 1V INDICATIONS: syncope TECHNIQUE: One view of the chest was acquired. COMPARISON: None. FINDINGS: Surgical changes and devices: None. Lungs and pleura: Lungs are clear. No pleural effusions or pneumothorax. Mediastinum: Mediastinal contours appear normal. Heart size is normal. Bones and chest wall: No suspicious bony lesions. Overlying soft tissues appear unremarkable. IMPRESSION: No acute cardiopulmonary abnormality is seen. Dictated by: Shree Hilario M.D. on 12/31/2023 at 10:53 Approved by: Shree Hilario M.D. on 12/31/2023 at 10:53
--- NOTE | 2023-12-31 10:19 | EKG_ITS ---
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
[2023-12-31 10:46] LABS: Add Manual Diff / Slide Review NO; Basophils Absolute Auto 0 /uL (0-100); Basophils Percent Auto 0.4 % (0-2); Eosinophils Absolute Auto 100 /uL (0-450); Eosinophils Percent Auto 1.4 % (2-4); Hematocrit 40.1 % (36-46); Hemoglobin 14.1 g/dL (12.0-16.0); Lymphocytes Absolute Auto 1800 /uL (1100-4500); Mean Corpuscular HGB Conc 35.3 % (30-36); Mean Corpuscular Hemoglobin 31.2 PG (26-34); Mean Corpuscular Volume 88.6 fL (80-100); Monocytes Absolute Auto 500 /uL (0-900); Monocytes Percent Auto 7.4 % (3-14); Neutrophils Absolute Auto 4400 /uL (1500-7000); Neutrophils Percent Auto 63.8 % (50-75); Platelet Count 272 X10^3/uL (150-400); Red Blood Cell Count 4.52 X10^6/uL (4.0-5.2); Red Cell Distribution Width 12.6 % (11.6-14.8); White Blood Cell Count 6.8 X10^3/uL (4.5-11.0)
[2023-12-31 10:59] LABS: Alanine Aminotransferase 16 IU/L (<35); Albumin 4.2 g/dL (3.5-5.0); Albumin Globulin Ratio 1.4 (1.0-2.8); Alkaline Phosphatase 71 U/L (38-126); Aspartate Aminotransferase 21 IU/L (14-36); Bilirubin Total 0.5 mg/dL (0.2-1.3); Blood Urea Nitrogen 15 mg/dL (7-17); Calcium 8.9 mg/dL (8.4-10.2); Carbon Dioxide 25 mmol/L (22-32); Chloride 108 mmol/L (98-107); Estimated Glomerular Filt Rate > 60 mL/min (>60); Globulin 2.9 g/dL (1.7-4.1); Glucose 133 mg/dL (70-100); HEMOLYSIS < 15 (0-50); Potassium 4.1 mmol/L (3.4-5.1); Sodium 140 mmol/L (137-145); Total Protein 7.1 g/dL (6.3-8.2)
[2023-12-31 11:20] LABS: Influenza A - CEPHEID Flu A NEGATIVE (NEGATIVE); Influenza B - CEPHEID Flu B NEGATIVE (NEGATIVE); Respiratory Syncytial Virus Negative (Negative)
[2023-12-31 11:22] LABS: COVID-19 CEPHEID 4-PLEX PCR Negative (Negative)
--- NOTE | 2023-12-31 12:09 | PC.NURSE ---
Patient states she smokes fentanyl regularly, last used this morning. Denies IVDU.
--- NOTE | 2023-12-31 13:11 | ED.GENADULT ---
HPI - General Adult General Chief complaint: Eye Problems Stated complaint: Might have pink eye Time Seen by Provider: 12/31/23 09:48 Source: patient Mode of arrival: Ambulatory History of Present Illness HPI narrative: 33-year-old with no noted significant medical history presents with bilateral eye irritation, with eyes red, significant light sensitivity and discharge from both eyes. No significant headache. On review of systems turns out that she had a syncopal episode simply standing at the stove yesterday. I did ask if she would used any narcotics prior if this was ?nodding out? and she denied drug use. She did hit her head she has been increasingly confused, she notes increased overall stressors recently. Family history is significant for rheumatoid arthritis and migraine. Related Data Previous Rx's Medication Instructions Recorded ketorolac 10 mg tablet 10 mg PO Q6H PRN pain #14 tabs 12/30/21 chlorhexidine gluconate 0.12 % 15 ml buccal BID #600 mL 06/02/23 mouthwash (Peridex) chlorhexidine gluconate 0.12 % 15 ml buccal BID #300 mL 11/14/23 mouthwash doxycycline hyclate 100 mg tablet 100 mg PO BID #20 tabs 11/14/23 gentamicin 0.3 % eye drops 2 drp EYE-BOTH Q6HR 5 days #5 mL 12/31/23 Allergies Allergy/AdvReac Type Severity Reaction Status Date / Time morphine Allergy ITCHING Verified 12/31/23 09:46 codeine AdvReac Vomiting Verified 12/31/23 09:46 Review of Systems Review of Systems Narrative: Pertinent positive and negative findings as per HPI Patient History Medical History Poor dentition Smoker Social History household members: friend(s) Smoking Status: Current every day smoker Smoking Status: Current every day smoker tobacco type: cigarettes alcohol intake frequency: a few times a week Substance Use Type: sedatives and painkillers Exam Initial Vital Signs Initial Vital Signs: Vital Signs Temperature 97.9 F 12/31/23 09:42 Pulse Rate 85 12/31/23 09:42 Respiratory Rate 13 12/31/23 09:42 Blood Pressure 124/62 12/31/23 09:42 Pulse Oximetry 98 12/31/23 09:42 Oxygen Delivery Method Room Air 12/31/23 09:42 General: Healthy appearing, in no acute distress. Able to give a complete and coherent history. Well-nourished well-developed HEENT: Moist mucous membranes, Respiratory: Lungs are clear to auscultation, no wheezing no rales no rhonchi. Full and symmetrical air movement Cardiac: Regular rate and rhythm no murmurs no bruits Abdomen: Soft, nontender, good bowel tones, no flank pain Skin: Warm and dry, no rashes Neurologic: Grossly neurologically intact with no obvious asymmetries or abnormalities Extremities: No trauma, no obvious arthropathy or synovitis Psych: Cooperative, appropriate insight and affect Eyes Visual Moura: normal visual moura by confrontation Alignment and Position: alignment normal and position normal Periorbital: periorbital findings normal Eyelids: eyelids normal Conjunctivae: conjunctival abnormality bilaterally and other (Punctate disruption with debris over the eyes. No dendritic lesions apprec) Sclera: scleral abnormality (Significant injection bilaterally) bilaterally Cornea: corneas abnormal (Edema without obvious corneal ulcer) bilaterally and fluorescein used Pupils: PERRL and other (Initial concern with pain with pupillary constriction bilaterally) EOM: EOM intact bilaterally Direct ophthalmoscopy: normal light reflex and anterior chamber normal (No flare cells appreciated with slit-lamp) Course Orders Ordered: ED Orders 12/31/23 10:18 CT head/brain wo con Stat 12/31/23 10:19 XR chest 1V Stat EKG-12 Lead Stat 12/31/23 10:24 Covid-19 + FLU A/B + RSV - PCR Stat 12/31/23 10:25 Complete Blood Count AUTO DIFF Stat Comprehensive Metabolic Panel Stat 12/31/23 13:05 Urinalysis and Microscopic Stat urine tox [Urine Drug Screen, Rapid] Stat Discontinued Medications Fluorescein Sodium (Fluorescein 1 Mg Strip) 1 mg EYE-BOTH NOW ONE Stop: 12/31/23 13:25 Last Admin: 12/31/23 13:32 Dose: 1 mg Documented By: ROSELINE Proparacaine HCl (Proparacaine 0.5% Ophth Leah) 1 drops EYE-BOTH NOW ONE Stop: 12/31/23 13:25 Last Admin: 12/31/23 13:31 Dose: 1 drop Documented By: ROSELINE Vital Signs Vital signs: Vital Signs - 8 hr 12/31/23 09:42 12/31/23 09:57 12/31/23 10:00 Temperature 97.9 F Pulse Rate 85 75 68 Respiratory Rate 13 Blood Pressure 124/62 Pulse Oximetry 98 98 98 Oxygen Delivery Method Room Air 12/31/23 10:00 12/31/23 10:22 12/31/23 10:22 Temperature Pulse Rate 66 Respiratory Rate 14 Blood Pressure 114/60 111/72 Pulse Oximetry 100 Oxygen Delivery Method 12/31/23 10:30 12/31/23 10:30 12/31/23 10:36 Temperature Pulse Rate 59 L 67 Respiratory Rate 11 L 12 Blood Pressure 110/65 Pulse Oximetry 100 100 Oxygen Delivery Method 12/31/23 10:36 12/31/23 10:40 12/31/23 10:50 Temperature Pulse Rate 62 59 L Respiratory Rate 13 16 Blood Pressure 114/74 Pulse Oximetry 100 100 Oxygen Delivery Method 12/31/23 11:00 12/31/23 11:35 12/31/23 12:00 Temperature Pulse Rate 56 L 56 L 54 L Respiratory Rate 12 12 12 Blood Pressure 109/66 124/57 L 108/54 L Pulse Oximetry 99 100 100 Oxygen Delivery Method Room Air Room Air Room Air 12/31/23 13:10 12/31/23 13:30 Temperature Pulse Rate 48 L 52 L Respiratory Rate 17 Blood Pressure 102/55 L 104/55 L Pulse Oximetry 100 100 Oxygen Delivery Method Room Air Room Air Medical Decision Making Lab Data 12/31/23 10:25 12/31/23 10:25 Labs: Lab Results 12/31/23 12/31/23 12/31/23 Range/Units 10: 10:25 13:05 WBC 6.8 (4.5-11.0) X10^3/uL RBC 4.52 (4.0-5.2) X10^6/uL Hgb 14.1 (12.0-16.0) g/dL Hct 40.1 (36-46) % MCV 88.6 (80-100) fL MCH 31.2 (26-34) PG MCHC 35.3 (30-36) % RDW 12.6 (11.6-14.8) % Plt Count 272 (150-400) X10^3/uL Neut % (Auto) 63.8 (50-75) % Lymph % (Auto) 27.0 (25-40) % [place] % (Auto) 7.4 (3-14) % Eos % (Auto) 1.4 L (2-4) % Baso % (Auto) 0.4 (0-2) % Neut # (Auto) 4400 (8535-1112) /uL Lymph # (Auto) 1800 (6894-4306) /uL [place] # (Auto) 500 (0-900) /uL Eos # (Auto) 100 (0-450) /uL Baso # (Auto) 0 (0-100) /uL Sodium 140 (137-145) mmol/L Potassium 4.1 (3.4-5.1) mmol/L Chloride 108 H (98-107) mmol/L Carbon Dioxide 25 (22-32) mmol/L BUN 15 (7-17) mg/dL Creatinine 0.60 (0.52-1.04) mg/dL Estimated GFR > 60 (>60) mL/min BUN/Creatinine Ratio 25.0 H (6-22) Glucose 133 H (70-100) mg/dL Calcium 8.9 (8.4-10.2) mg/dL Total Bilirubin 0.5 (0.2-1.3) mg/dL AST 21 (14-36) IU/L ALT 16 (<35) IU/L Alkaline Phosphatase 71 (38-126) U/L Total Protein 7.1 (6.3-8.2) g/dL Albumin 4.2 (3.5-5.0) g/dL Globulin 2.9 (1.7-4.1) g/dL Albumin/Globulin Ratio 1.4 (1.0-2.8) Urine Color Yellow Urine Appearance Clear Urine pH 6.0 (4.5-8.0) Ur Specific [place] 1.020 (1.000-1.035) Urine Protein Negative (Negative) Urine Glucose (UA) Negative (Negative) g/dL Urine Ketones Negative (NEGATIVE) Urine Occult Blood 1+ H (Negative) Urine Nitrate Negative (Negative) Urine Bilirubin Negative (NEGATIVE) Urine Urobilinogen 0.2 (0.2) E.U./dL Ur Leukocyte Esterase Negative (NEGATIVE) Urine RBC 5-10/hpf H (0-5/HPF) Urine WBC 1-5/hpf (0-5/HPF) Ur Squamous Epith Cells 10-30 /hpf H (0-5/HPF) Urine Bacteria Occasional (0-1) (None) Ur Culture Indicated? Cult not indicated Vol Urine Centrifuged 10ml (spun) U Opiates 300ng/mL cut Negative (Negative) Ur Oxycodone Screen Negative (Negative) Urine Methadone Screen Negative (Negative) Ur Barbiturates Screen Negative (Negative) U Tricyclic Antidepress Negative (Negative) Ur Phencyclidine Scrn Negative (Negative) Ur Amphetamines Screen Positive H (Negative) U Methamphetamines Scrn Positive H (Negative) Ur MDMA Scrn (Ecstasy) Negative (Negative) U Benzodiazepines Scrn Negative (Negative) Urine Cocaine Screen Negative (Negative) U Marijuana (THC) Screen Negative (Negative) Urine Specific [place] (Normal) Ur Creatinine (Normal) SARS-CoV-2 (PCR) Negative (Negative) Influenza A (RT-PCR) Flu a negative (NEGATIVE) Influenza B (RT-PCR) Flu b negative (NEGATIVE) RSV (PCR) Negative (Negative) 12/31/23 Range/Units 13:05 WBC (4.5-11.0) X10^3/uL RBC (4.0-5.2) X10^6/uL Hgb (12.0-16.0) g/dL Hct (36-46) % MCV (80-100) fL MCH (26-34) PG MCHC (30-36) % RDW (11.6-14.8) % Plt Count (150-400) X10^3/uL Neut % (Auto) (50-75) % Lymph % (Auto) (25-40) % [place] % (Auto) (3-14) % Eos % (Auto) (2-4) % Baso % (Auto) (0-2) % Neut # (Auto) (6801-3874) /uL Lymph # (Auto) (5192-7285) /uL [place] # (Auto) (0-900) /uL Eos # (Auto) (0-450) /uL Baso # (Auto) (0-100) /uL Sodium (137-145) mmol/L Potassium (3.4-5.1) mmol/L Chloride (98-107) mmol/L Carbon Dioxide (22-32) mmol/L BUN (7-17) mg/dL Creatinine (0.52-1.04) mg/dL Estimated GFR (>60) mL/min BUN/Creatinine Ratio (6-22) Glucose (70-100) mg/dL Calcium (8.4-10.2) mg/dL Total Bilirubin (0.2-1.3) mg/dL AST (14-36) IU/L ALT (<35) IU/L Alkaline Phosphatase (38-126) U/L Total Protein (6.3-8.2) g/dL Albumin (3.5-5.0) g/dL Globulin (1.7-4.1) g/dL Albumin/Globulin Ratio (1.0-2.8) Urine Color Urine Appearance Urine pH Normal (4.5-8.0) Ur Specific [place] (1.000-1.035) Urine Protein (Negative) Urine Glucose (UA) (Negative) g/dL Urine Ketones (NEGATIVE) Urine Occult Blood (Negative) Urine Nitrate (Negative) Urine Bilirubin (NEGATIVE) Urine Urobilinogen (0.2) E.U./dL Ur Leukocyte Esterase (NEGATIVE) Urine RBC (0-5/HPF) Urine WBC (0-5/HPF) Ur Squamous Epith Cells (0-5/HPF) Urine Bacteria (None) Ur Culture Indicated? Vol Urine Centrifuged U Opiates 300ng/mL cut (Negative) Ur Oxycodone Screen (Negative) Urine Methadone Screen (Negative) Ur Barbiturates Screen (Negative) U Tricyclic Antidepress (Negative) Ur Phencyclidine Scrn (Negative) Ur Amphetamines Screen (Negative) U Methamphetamines Scrn (Negative) Ur MDMA Scrn (Ecstasy) (Negative) U Benzodiazepines Scrn (Negative) Urine Cocaine Screen (Negative) U Marijuana (THC) Screen (Negative) Urine Specific [place] Normal (Normal) Ur Creatinine Normal (Normal) SARS-CoV-2 (PCR) (Negative) Influenza A (RT-PCR) (NEGATIVE) Influenza B (RT-PCR) (NEGATIVE) RSV (PCR) (Negative) [facility] Narrative Medical decision making narrative: CC: Red eyes Data collected from: patient Differential considered: Iritis, bilateral bacterial conjunctivitis, herpetic involvement, viral syndrome Exam documented above, pertinent findings include: Symmetrically erythematous eyes with significant discharge. No dendritic lesions over the cornea, no corneal abrasions, punctate lesion consistent with irritation and more bacterial presentation. There is no flare or cells in the anterior chamber and she has not having significant high-risk irritation with slit-lamp exam Lab Test results independently reviewed as above. Pertinent findings: Flu COVID and RSV are negative CBC is unremarkable Chemistries are reassuring Urinalysis does not suggest infection Urine tox screen does show methamphetamine use Discussion:33-year-old woman presents with bilateral acute eye erythema discharge and light sensitivity. There was no evidence of viral syndrome, acute iritis, glaucoma, dendritic lesions over her eyes or obvious foreign bodies. At this point we will treat this is a bilateral conjunctivitis with gentamicin eyedrops called into her pharmacy of choice. Told her that symptoms should clearly improve by Thursday if not she needs to be re-evaluated by an supervisor international reservations. If she has worsening symptoms including pain, light sensitivity or vision changes she needs to come back to the emergency department if she is unable to get into an supervisor [place]. She expresses understanding. There was no indication for hospital admission. She is safe for discharge Discharge Plan Departure Patient Disposition: Home Clinical Impression: Conjunctivitis Qualifiers: Conjunctivitis type: acute Acute conjunctivitis type: bacterial Laterality: bilateral Qualified Code(s): H10.33 - Unspecified acute conjunctivitis, bilateral Instructions: DI for Conjunctivitis Activity Restrictions/Additional Instructions: Thank you for coming in today Because this was both eyes and you were light sensitive I was concerned that this might be more than a simple bacterial infection. I did not see signs of viral infection, significant overall inflammation, does not look like you have a condition called iritis. This may be a reaction to I exposure to some type of chemical however you do not described that happening. At this point I am going to suggest we treat this as a bacterial infection in both eyes. I have sent gentamicin eyedrops to [facility] free to [place] picking supervisor today Again any changes to vision or new symptoms you do need to be re-evaluated Prescriptions: New gentamicin 0.3 % drops 2 drp EYE-BOTH Q6HR 5 Days Qty: 5 0RF No Action chlorhexidine gluconate [Peridex] 0.12 % mouthwash 15 ml buccal BID Qty: 600 0RF ketorolac 10 mg tablet 10 mg PO Q6H PRN (Reason: pain) Qty: 14 0RF doxycycline hyclate 100 mg tablet 100 mg PO BID Qty: 20 0RF chlorhexidine gluconate 0.12 % mouthwash 15 ml buccal BID Qty: 300 0RF Referrals: Luis Eduardo Ureña MD [Primary Care Provider] - Stand Alone Forms: Patient Portal/API/Survey
[2023-12-31 13:25] LABS: Appearance Urine UA CLEAR; Bilirubin Urine UA NEGATIVE (NEGATIVE); Color Urine UA YELLOW; Glucose Urine UA NEGATIVE (Negative); Ketones Urine UA NEGATIVE (NEGATIVE); Leukocyte Esterase Urine UA NEGATIVE (NEGATIVE); Nitrite Urine UA NEGATIVE (Negative); Occult Blood Urine UA 1+ (Negative); Protein Urine UA NEGATIVE (Negative); Urobilinogen Urine UA 0.2 E.U./dL (0.2)
[2023-12-31 13:30] LABS: Ur Creatinine Normal (Normal); Ur Specific Gravity Normal (Normal); Urine Amphetamines Positive (Negative); Urine Barbiturates Negative (Negative); Urine Benzodiazepines Negative (Negative); Urine Cocaine Negative (Negative); Urine MDMA Negative (Negative); Urine Methadone Negative (Negative); Urine Methamphetamines Positive (Negative); Urine Opiates Negative (Negative); Urine Oxycodone Negative (Negative); Urine Phencyclidine Negative (Negative); Urine THC Negative (Negative); Urine Tricyclic Antidepressant Negative (Negative); Urine pH Normal (Normal)
[2023-12-31] MEDS: PROPARACAINE 0.5% OPHTH SOL 1 DROPS EYE-BOTH (13:31)
[2023-12-31] MEDS: FLUORESCEIN 1 MG STRIP EYE-BOTH (13:32)
[2023-12-31 13:36] LABS: Bacteria Urine Occasional (0-1); Culture Indicated Urine Cult Not Indicated; RBC Urine 5-10/HPF (0-5/HPF); Squamous Epithelial Cell Urine 10-30 /HPF (0-5/HPF); Urine Volume 10mL (spun); WBC Urine 1-5/HPF (0-5/HPF)
== END 2023-12-31 14:33 | disposition home or self-care (01) ==
PROVIDERS: Emergency Provider Emergency Medicine; PCP Family Medicine
DX: H10.33 Unspecified acute conjunctivitis, bilateral (principal); Z11.52 Encounter for screening for COVID-19; R00.1 Bradycardia, unspecified; R55 Syncope and collapse; S09.90XA Unspecified injury of head, initial encounter
CPT/HCPCS: 0241U; 36415; 70450; 71045; 80053; 80305; 81001; 85025; 93005; 99283; 99284